=== PATIENT | female | born 1945 | race Caucasian/White ===

== ENCOUNTER 2024-01-14 13:54 | Inpatient (IN) | payer MEDICARE, MEDICAID ==
[~2024-01-14] VITALS: Ht 165.1 cm; Wt 66.7 kg
[2024-01-14] MEDS: SODIUM CHLORIDE 0.9% 1,000 ML IV ONE ×2 (14:58→19:13)
[2024-01-14] MEDS: PIPERACILLIN/TAZO 3.375G/50ML 50 ML IV ONE (15:13)
[2024-01-14 15:56] LABS: HEMATOCRIT. 47.3 % (36.0-48.0); HEMOGLOBIN. 15.6 g/dL (12.0-16.0); MEAN CORPUSCULAR HEMOGLOBIN 28.7 pg (28.0-32.0); MEAN CORPUSCULAR HGB CONC 33.1 g/dL (31.0-37.0); MEAN CORPUSCULAR VOLUME 86.7 fL (81.0-99.0); MEAN PLATELET VOLUME 7.9 fl (7.4-10.4); PLATELET 258 x1000/uL (130-400); RED BLOOD CELL COUNT 5.45 mill/uL (4.2-5.4); WHITE BLOOD COUNT 22.4 x1000/uL (4.5-11.0)
[2024-01-14 15:58] LABS: DIFFERENTIAL COMMENT 1
[2024-01-14 16:06] LABS: CARBON DIOXIDE 26 mEq/L (21-32)
[2024-01-14 16:07] LABS: CALCIUM 11.9 mg/dL (8.7-10.4); CHLORIDE 93 mEq/L (98-107); POTASSIUM 4.9 mEq/L (3.5-5.1); SODIUM 130 mEq/L (136-145)
[2024-01-14 16:12] LABS: CREATININE 1.8 mg/dL (0.6-1.0); GLUCOSE 227 mg/dL (70-105); LACTIC ACID 2.9 mmol/L (0.4-2.0); UREA NITROGEN BLOOD 34 mg/dL (9-23)
[2024-01-14 16:13] LABS: ALBUMIN 3.7 g/dL (3.2-4.8)
[2024-01-14 16:14] LABS: ALANINE AMINOTRANSFERASE 35 IU/L (10-49); ASPARTATE AMINOTRANSFERASE 59 IU/L (<34); BILIRUBIN DIRECT 0.6 mg/dL (<=3.0); BILIRUBIN TOTAL 1.4 mg/dL (0.1-1.0)
[2024-01-14 16:15] LABS: INR 1.4; PROTHROMBIN TIME 15.6 sec (9.6-11.0)
[2024-01-14 16:18] LABS: TROPONIN I HIGH SENSITIVITY 85 ng/L (3.0-34)
[2024-01-14 16:37] LABS: PLATELET ESTIMATE NORMAL
[2024-01-14] MEDS: VANCOMYCIN 1G PREMIX 200 ML IV ONE (16:51)
[2024-01-14 17:01] LABS: D-DIMER > 35.20 mg/L FEU (<0.50)
[2024-01-14 17:38] LABS: TROPONIN I HIGH SENSITIVITY 72 ng/L (3.0-34)
[2024-01-14 17:39] LABS: LACTIC ACID 3.7 mmol/L (0.4-2.0)
[2024-01-14] MEDS ORDERED: CLONIDINE 0.1MG TABLET PO PRN (18:45)
[2024-01-14] MEDS ORDERED: ONDANSETRON HCL 4MG/2ML INJ IV PRN (18:45)
[2024-01-14] MEDS ORDERED: ACETAMINOPHEN 325MG TABLET PO PRN ×2 (18:45)
[2024-01-14] MEDS ORDERED: DEXTROSE 50% WATER 50ML SYRINGE IV PRN (18:45)
[2024-01-14] MEDS ORDERED: IPRATROPIUM/ALBUTEROL 0.5-3(2.5)MG/3ML NEB HHN PRN (18:45)
[2024-01-14] MEDS: SODIUM CHLORIDE 0.9% 1,000 ML IV SCH (19:00)
[2024-01-14 19:45] LABS: IRON 113 ug/dL (50-170)
[2024-01-14 19:47] LABS: PHOSPHORUS 6.3 mg/dL (2.5-4.9)
[2024-01-14 19:48] LABS: TOTAL IRON BINDING CAPACITY 313 ug/dl (250-425)
[2024-01-14 19:51] LABS: FERRITIN 291 ng/mL (10-291)
[2024-01-14 19:52] LABS: VITAMIN B12 SERUM 619 pg/mL (211-911)
[2024-01-14] MEDS: MIDODRINE HCL 5MG TABLET PO SCH (19:58)
[2024-01-14] MEDS: ENOXAPARIN 80MG/0.8ML SYR SUBCUT SCH (20:45)
[2024-01-14] MEDS: BLOOD SUGAR DIAGNOSTIC STRIP TEST SCH (21:15)
[2024-01-14] MEDS: INSULIN LISPRO 100 UNITS/ML SUBCUT SCH (21:25)
[2024-01-14] MEDS ORDERED: PIPERACILLIN/TAZOBACTAM 3.375 G in DEXTROSE 5% WATER 50 ML IV SCH (22:00)
[2024-01-14 23:42] VITALS: BP 94/69; PULSE 73; RESP 23; TEMP 97.2
[2024-01-15] VITALS (12 sets, daily range): BP systolic 63–113; BP diastolic 41–68; PULSE 61–88; RESP 20–25; TEMP 96.9–99
[2024-01-15 02:53] LABS: CREATINE KINASE MB FRACTION 10.2 ng/mL (0.5-3.6)
[2024-01-15] MEDS: PIPERACILLIN/TAZO 3.375G/50ML IV SCH (06:55)
[2024-01-15] MEDS: PANTOPRAZOLE 40MG DR TABLET PO SCH (08:14)
[2024-01-15] MEDS: MIDODRINE HCL 5MG TABLET PO SCH ×2 (08:15→17:08)
[2024-01-15 08:51] LABS: HEMATOCRIT. 40.2 % (36.0-48.0); HEMOGLOBIN. 13.3 g/dL (12.0-16.0); MEAN CORPUSCULAR HEMOGLOBIN 28.7 pg (28.0-32.0); MEAN CORPUSCULAR HGB CONC 33.2 g/dL (31.0-37.0); MEAN CORPUSCULAR VOLUME 86.7 fL (81.0-99.0); MEAN PLATELET VOLUME 8.2 fl (7.4-10.4); PLATELET 203 x1000/uL (130-400); RED BLOOD CELL COUNT 4.63 mill/uL (4.2-5.4); RED CELL DISTRIBUTION WIDTH 14.4 % (11.6-14.6); WHITE BLOOD COUNT 19.2 x1000/uL (4.5-11.0)
[2024-01-15 08:55] LABS: POTASSIUM 4.3 mEq/L (3.5-5.1)
[2024-01-15 08:57] LABS: CALCIUM 10.1 mg/dL (8.7-10.4)
[2024-01-15] MEDS ORDERED: VANCOMYCIN 1G PREMIX 200 ML IV SCH (09:00)
[2024-01-15 09:01] LABS: CREATININE 1.3 mg/dL (0.6-1.0)
[2024-01-15 09:02] LABS: CREATINE KINASE MB FRACTION 6.6 ng/mL (0.5-3.6)
[2024-01-15 09:05] LABS: T4 FREE 1.11 ng/dL (0.89-1.76)
[2024-01-15 09:10] LABS: DIFFERENTIAL COMMENT 1
[2024-01-15 10:05] LABS: T4 FREE 1.12 ng/dL (0.89-1.76)
[2024-01-15] MEDS: MORPHINE SULFATE 2 MG/ML CPJ (NOT FOR IM USE) IV NR (11:58)
[2024-01-15] MEDS: SODIUM CHLORIDE 0.9% 250 ML IV ONE (12:36)
[2024-01-15] MEDS: MIDODRINE HCL 5MG TABLET PO NR (12:50)
[2024-01-15] MEDS: VANCOMYCIN 500MG PREMIX 100 ML IV SCH (14:51)
[2024-01-15] MEDS: SODIUM CHLORIDE 0.9% 1,000 ML IV SCH (15:30)
[2024-01-15] MEDS ORDERED: ENOXAPARIN 60MG/0.6ML SYR SUBCUT SCH ×2 (17:45→21:00)
[2024-01-15 18:09] LABS: CREATINE KINASE MB FRACTION 3.5 ng/mL (0.5-3.6)
[2024-01-15 20:39] LABS: PLATELET ESTIMATE NORMAL
[2024-01-15] MEDS: DOCUSATE SODIUM 100MG CAPSULE PO PRN (21:34)
[2024-01-15] MEDS ORDERED: NALOXONE HCL 0.4MG/ML VIAL IV PRN (22:30)
[2024-01-15] MEDS: HYDROCODONE/ACETAMINOPHEN 5/325MG TABLET PO PRN (22:42)
[2024-01-16] VITALS (42 sets, daily range): BP systolic 90–139; BP diastolic 49–94; PULSE 56–91; RESP 17–25; TEMP 96.7–98.9
[2024-01-16] MEDS ORDERED: SODIUM CHLORIDE 0.9% 1,000 ML IV NR (09:52)
[2024-01-16] MEDS ORDERED: PHENYLEPHRINE 50MG/250ML PMX 250 ML IV PRN (11:00)
[2024-01-16] MEDS ORDERED: NOREPINEPHRINE 8MG/250ML PMX 250 ML IV PRN (13:00)
[2024-01-16 14:21] LABS: CLARITY URINE CLEAR (CLEAR); COLOR URINE YELLOW (YELLOW); GLUCOSE URINE NEGATIVE (NEGATIVE); KETONES URINE NEGATIVE (NEGATIVE); LEUKOCYTE ESTERASE URINE NEGATIVE (NEGATIVE); NITRITE URINE NEGATIVE (NEGATIVE); OCCULT BLOOD URINE TRACE (NEGATIVE); PH URINE 5.5 (4.5-8.0); PROTEIN URINE NEGATIVE (NEGATIVE); SPECIFIC GRAVITY URINE 1.014 (1.005-1.030); UROBILINOGEN URINE 0.2 E.U./dL (0.2-1.0)
[2024-01-16 14:34] LABS: RBC URINE 0-2 /hpf (0-2)
[2024-01-16 14:35] LABS: BACTERIA URINE NONE SEEN; SQUAMOUS EPITHELIAL CELL URINE 1+ /lpf (RARE/1+)
[2024-01-16] MEDS: DEXAMETHASONE 4MG/ML 1ML VIAL IV SCH (18:34)
[2024-01-16] MEDS: MIDODRINE HCL 5MG TABLET PO SCH (21:23)
[2024-01-16] MEDS: FAMOTIDINE 20MG/2ML VIAL IV SCH (21:26)
[2024-01-17] VITALS (55 sets, daily range): BP systolic 98–146; BP diastolic 51–114; PULSE 54–105; RESP 14–30; TEMP 97.7–98.5
[2024-01-17] MEDS: DEXAMETHASONE 4MG TABLET PO SCH (14:06)
[2024-01-17] MEDS: ENOXAPARIN 30MG/0.3ML SYR SUBCUT SCH (15:59)
[2024-01-17] MEDS ORDERED: ENOXAPARIN 40MG/0.4ML SYR SUBCUT SCH (16:00)
[2024-01-17] MEDS: FAMOTIDINE 20MG TABLET PO SCH (21:19)
[2024-01-18] VITALS (28 sets, daily range): BP systolic 102–164; BP diastolic 59–117; PULSE 75–110; RESP 20–29; TEMP 96.6–98.8
[2024-01-19] VITALS (11 sets, daily range): BP systolic 134–154; BP diastolic 80–90; PULSE 57–97; RESP 15–27; TEMP 98–98.6; O2SAT 95
[2024-01-19] MEDS ORDERED: DEX4 PO (17:25)
== END 2024-01-19 21:00 | disposition home or self-care (01) | DRG 871 ==
LOC: ER 15:00 → 5EST 17:11 → EDBEDREQTM 17:15 → EDBEDREQ 17:15 → MICUSO 01-16 10:51 → 5EST 01-18 12:15
PROVIDERS: ADMIT Internal Medicine; ATTEND Internal Medicine
DX: A41.9 Sepsis, unspecified organism (principal); G93.41 Metabolic encephalopathy; J96.01 Acute respiratory failure with hypoxia; I21.A1 Myocardial infarction type 2; L89.153 Pressure ulcer of sacral region, stage 3; M62.82 Rhabdomyolysis; N17.9 Acute kidney failure, unspecified; I82.451 Acute embolism and thrombosis of right peroneal vein; E46 Unspecified protein-calorie malnutrition; G82.20 Paraplegia, unspecified; C91.10 Chronic lymphocytic leukemia of B-cell type not having achieved remission; C82.99 Follicular lymphoma, unspecified, extranodal and solid organ sites; C79.51 Secondary malignant neoplasm of bone; C78.00 Secondary malignant neoplasm of unspecified lung; E86.9 Volume depletion, unspecified; R19.04 Left lower quadrant abdominal swelling, mass and lump; H54.7 Unspecified visual loss; K59.09 Other constipation; G89.3 Neoplasm related pain (acute) (chronic); M47.9 Spondylosis, unspecified; M48.07 Spinal stenosis, lumbosacral region; Z91.199 Patient's noncompliance with other medical treatment and regimen due to unspecified reason; Z68.24 Body mass index [BMI] 24.0-24.9, adult; Z79.899 Other long term (current) drug therapy
CPT/HCPCS: 36415; 71045; 72148; 76700; 80048; 80061; 80076; 81003; 82550; 82553; 82607; 82728; 82746; 82962; 83036; 83540; 83550; 83605; 83735; 83880; 84100; 84145; 84439; 84443; 84484; 85025; 85379; 93005; 93306; 93970; 99291; A6261; J1100; J1650; J1815; J2270; J2543; J3370; J3490; J7030; J7060; J8540